=== PATIENT | female | born 1980 | race African-American/Black ===

== ENCOUNTER 2016-08-22 09:38 | Emergency (ER) | payer OTHER ==
[2016-08-22 09:51] VITALS: BP 114/77; PULSE 85; TEMP 98.4; BMI 31.0
[2016-08-22] MEDS ORDERED: IBUPROFEN 600 MG TABLET (FP) PO ONE ×2 (11:38→11:49)
--- NOTE | 2016-08-22 11:38 | PDOC ---
History of Present Illness - General Chief Complaint: Injury Stated Complaint: ANKLE PAIN Time Seen by Provider: 08/22/16 11:04 History Source: Patient Exam Limitations: No Limitations - History of Present Illness Initial Comments: 08/22/16 14:59 08/22/16 14:59 MY CHIEF COMPLAINT: right ankle pain with swelling HISTORY OF PRESENT ILLNESS: Pt. for pain.is a 36-year-old female with no significant medical problems here today after twisting her right ankle yesterday. Patient has swelling to right lateral ankle. Patient reports that is painful to apply pressure to her right foot. Patient has been taking ibuprofen. She Any numbness of her right foot or ankle. 08/22/16 15:11 Occurred: reports: yesterday Severity: Yes: moderate Lower Extremity Pain Location: right: ankle Method of Injury: Yes: twisted Modifying Factors: improves with: None Lower Ext. Injury Location - Specific Injury Location Ankle: right pain, right swelling Extremity Pain Location - Extremity Pain Location Extremity Pain Locations: right: ankle Past History - Past Medical History Allergies/Adverse Reactions: Allergies Allergy/AdvReac Type Severity Reaction Status Date / Time No Known Allergies Allergy Verified 08/22/16 09:49 Home Medications: Ambulatory Orders NK [No Known Home Medication] 08/22/16 Other medical history: denies - Immunization History Immunization Up to Date: Yes - Psycho/Social/Smoking Cessation Hx Anxiety: No Suicidal Ideation: No Smoking Status: Yes Smoking History: Current every day smoker Number of Cigarettes Smoked Daily: 6 Information on smoking cessation initiated: No Hx Alcohol Use: Yes Drug/Substance Use Hx: No Review of Systems - Review of Systems Able to Perform ROS?: Yes Constitutional: No: Symptoms Reported HEENTM: No: Symptoms Reported Respiratory: No: Symptoms reported Cardiac (ROS): No: Symptoms Reported ABD/GI: No: Symptoms Reported : No: Symptoms Reported Musculoskeletal: Yes: Joint Pain (rt lateral ankle/foot ), Joint Swelling (rt. lateral ankle ) Integumentary: No: Symptoms Reported Neurological: No: Symptoms reported *Physical Exam - Vital Signs Last Vital Signs Temp Pulse Resp BP Pulse Ox 98.4 F 85 20 114/77 98 08/22/16 09:49 08/22/16 09:49 08/22/16 09:49 08/22/16 09:49 08/22/16 09:49 - Physical Exam General Appearance: Yes: Appropriately Dressed Vascular Pulses: Dorsalis-Pedis (R): 4+ Extremity: positive: Normal Capillary Refill, Normal Range of Motion (rt. foot/ toes, rt. ankle ), Tender (rt. lateral ankle ), Swelling (rt. lateral ankle ) Integumentary: positive: Normal Color, Swelling (rt. lateral ankle ) Neurologic: positive: Alert, Normal Response, Respond to painful stimul (rt. foot/ankle ), Responsive Deep Tendon Reflexes: Ankle (R): 4+ (no induration ) Procedures - Consent Consent obtained: From Patient - Splinting Splint Location: Right: Ankle Pre-Made Type: aircast Mahesh Bandage: no Complications: No ED Treatment Course - ADDITIONAL ORDERS Additional order review: Laboratory Results 08/22/16 10:20 Urine HCG, Qual Negative - RADIOLOGY Radiology Studies Ordered: Category Date Time Status ANKLE & FOOT-RIGHT* [RAD] Stat Radiology 08/22/16 10:45 Completed Medical Decision Making - Medical Decision Making 08/22/16 11:41 Pt. for pain.is a 36-year-old female with no significant medical problems here today after twisting her right ankle yesterday. Patient has swelling to right lateral ankle. Patient reports that is painful to apply pressure to her right foot. Patient has been taking ibuprofen. She Any numbness of her right foot or ankle. PLAN: urine hcg negative Ibuprofen 600 mg po now xray rt. foot/ankle hallux valgus mild, soft tissue swelling rt. lateral ankle, no fracture aircast rt. ankle follow up orthopedist 08/22/16 15:12 *DC/Admit/Observation/Transfer Diagnosis at time of Disposition: Sprained ankle Qualifiers: Encounter type: initial encounter Involved ligament of ankle: tibiofibular ligament Laterality: right Qualified Code(s): S93.431A - Sprain of tibiofibular ligament of right ankle, initial encounter - Referrals Referrals: Jenna Green MD [Primary Care Provider] - Skyler Farooq MD [Staff Physician] - - Patient Instructions Additional Instructions: Elevate right foot as much as possible and apply ice every hour and a half for 15 minutes while awake today Keep Aircast on during the day may take off at night Follow-up with orthopedist for further evaluation within the next few days Take ibuprofen as 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
== END 2016-08-22 12:06 | disposition home or self-care (01) ==
LOC: JERFT 09:38
PROC: 2W3LX1Z Immobilization of Right Lower Extremity using Splint (ICD-10-PCS; principal; 2016-08-22)
DX: S93.431A Sprain of tibiofibular ligament of right ankle, initial encounter (principal); X50.1XXA Overexertion from prolonged static or awkward postures, initial encounter; Y93.89 Activity, other specified; Y92.89 Other specified places as the place of occurrence of the external cause; Y99.8 Other external cause status
CPT/HCPCS: 73610-TC-RT; 73630-TC-RT; 84703; 99281-25

== ENCOUNTER 2018-11-20 07:05 | Emergency (ER) | payer OTHER ==
[2018-11-20 07:42] VITALS: BP 120/81; PULSE 81; TEMP 97.8; BMI 31.7
[2018-11-20] MEDS ORDERED: IBUPROFEN 400 MG TABLET (FP) PO ONE ×2 (08:08→08:13)
--- NOTE | 2018-11-20 08:12 | PDOC ---
History of Present Illness - General Chief Complaint: Pain Stated Complaint: JOINT PAIN Time Seen by Provider: 11/20/18 07:36 History Source: Patient - History of Present Illness Occurred: reports: other Severity: reports: moderate Upper Extremity Pain Location: right: hand, wrist Past History - Past Medical History Allergies/Adverse Reactions: Allergies Allergy/AdvReac Type Severity Reaction Status Date / Time No Known Allergies Allergy Verified 08/22/16 09:49 Home Medications: Ambulatory Orders Arm Brace [Wrist Brace] 1 each ASDIR #1 each 11/20/18 Ibuprofen [Motrin -] 800 mg PO QID #30 tablet 11/20/18 COPD: No - Immunization History Immunization Up to Date: Yes - Suicide/Smoking/Psychosocial Hx Smoking Status: Yes Smoking History: Current every day smoker Number of Cigarettes Smoked Daily: 10 Information on smoking cessation initiated: No Hx Alcohol Use: No Drug/Substance Use Hx: No Review of Systems - Review of Systems Constitutional: No: Chills, Fever Musculoskeletal: Yes: Joint Pain. No: Joint Swelling *Physical Exam - Vital Signs Last Vital Signs Temp Pulse Resp BP Pulse Ox 97.8 F 81 16 120/81 99 11/20/18 07:29 11/20/18 07:29 11/20/18 07:29 11/20/18 07:29 11/20/18 07:29 - Physical Exam General Appearance: Yes: Appropriately Dressed. No: Apparent Distress HEENT: positive: Normal Voice Neck: positive: Supple Respiratory/Chest: negative: Respiratory Distress Extremity: positive: Normal Inspection, Normal Range of Motion, Other (c/o mild pain to dorsum of R wrist extending into R 5th metacarpal w/ certain movement in ED). negative: Tender, Swelling Integumentary: positive: Dry, Warm Neurologic: positive: Fully Oriented, Alert, Normal Mood/Affect Medical Decision Making - Medical Decision Making 11/20/18 08:34 38-year-old female, no significant history, here with ongoing right wrist pain. Patient states she developed wrist pain for the first time ~e 3 months ago when she opened her car door. Has been having pain mostly to dorsum of right wrist extending into the fifth metacarpal area on and off since then. States yesterday while driving, pain got worse while turning the steering wheel. Has not taken anything for pain. States today is the first time she seeking medical evaluation. Denies any sensory changes see exam M/l MSK wrist pain Exam unremarkable -dc w// pain control -ortho f/u given duration of sxs *DC/Admit/Observation/Transfer Diagnosis at time of Disposition: Wrist strain Qualifiers: Encounter type: initial encounter Laterality: right Qualified Code(s): S66.911A - Strain of unspecified muscle, fascia and tendon at wrist and hand level, right hand, initial encounter - Discharge Dispostion Disposition: HOME Condition at time of disposition: Good - Prescriptions Prescriptions: Arm Brace [Wrist Brace] 1 each ASDIR #1 each Ibuprofen [Motrin -] 800 mg PO QID #30 tablet - Referrals Referrals: Jenna Green MD [Primary Care Provider] - Jr Ramirez MD [Staff Physician] - - Patient Instructions Printed Discharge Instructions: DI for Wrist Pain Additional Instructions: The cause of your wrist pain is unclear at this time, but may be due to muscular source. Take Motrin for pain as directed, use brace for comfort and follow up with Dr. Ramirez, of orthopedics - Post Discharge Activity
== END 2018-11-20 08:21 | disposition home or self-care (01) ==
LOC: JER 07:05
PROC: 2W3CX1Z Immobilization of Right Lower Arm using Splint (ICD-10-PCS; principal; 2018-11-20)
DX: S66.911A Strain of unspecified muscle, fascia and tendon at wrist and hand level, right hand, initial encounter (principal); X58.XXXA Exposure to other specified factors, initial encounter; Y93.89 Activity, other specified; Y92.89 Other specified places as the place of occurrence of the external cause
CPT/HCPCS: 29126; 99282-25

== ENCOUNTER 2024-04-28 07:20 | Emergency (ER) | payer SELFPAY ==
[2024-04-28 07:26] VITALS: BP 150/95; RESP 20; BMI 34.7
[2024-04-28 07:43] VITALS: TEMP 98.6
[2024-04-28] MEDS: ACETAMINOPHEN 325 MG TABLET (FP) PO ONE (08:59)
[2024-04-28 09:25] VITALS: PULSE 102
== END 2024-04-28 09:26 | disposition home or self-care (01) ==
LOC: JER 07:20
DX: U07.1 COVID-19 (principal); R05.9 Cough, unspecified; R07.9 Chest pain, unspecified; R09.81 Nasal congestion; R53.1 Weakness; R00.0 Tachycardia, unspecified
CPT/HCPCS: 0241U-QW; 71046-TC-FY; 84703; 93005; 93010; 99285-25